=== PATIENT | female | born 1960 | race Caucasian/White ===

== ENCOUNTER 2020-06-14 23:39 | Inpatient (IN) | payer OTHER ==
[~2020-06-14] VITALS: Ht 149.9 cm; Wt 50.8 kg
[~2020-06-14 23:39] MED LIST: AZITHROMYCIN250 MG PO; IPRAT-ALBUT 0.5-3 ML NEB; LEVAQUIN750 MG PO; LOPRESSOR 25 MG25 MG PO; LORTAB 7.5-3251 EACH PO; NICOTINE PATCH1 EAC2 TOP; NITROSTAT0.4 MG SL; NORCO 5-325 TA1 EACH PO; PLAVIX 75 MG TA75 MG PO; VENTOLIN HFA 66.7 GM INH
[2020-06-14 23:54] LABS: HEMOGLOBIN 13.8 gm/dl (12.3-15.3); RED BLOOD COUNT 4.3 M/UL (4.00-5.10); WHITE BLOOD COUNT 11.4 K/UL (4.5-11.0)
[2020-06-15 00:50] LABS: BUN/CREATININE RATIO 13 (0-10)
[2020-06-15] MEDS ORDERED: ANORO ELLIPTA1 EACH INH (09:22)
[2020-06-15] MEDS ORDERED: PROTONIX 40 MG40 M1 PO (09:23)
[2020-06-15] MEDS ORDERED: ASPIRIN EC81 MG PO (10:08)
[2020-06-15] MEDS ORDERED: KLONOPIN1 MG PO (10:09)
[2020-06-15] MEDS ORDERED: ALLERGY RELIEF10 MG PO (10:09)
[2020-06-15] MEDS ORDERED: GABAPENTIN300 MG PO (16:50)
[2020-06-16 05:56] LABS: HEMOGLOBIN 11.5 gm/dl (12.3-15.3); RED BLOOD COUNT 3.59 M/UL (4.00-5.10); WHITE BLOOD COUNT 14.7 K/UL (4.5-11.0)
[2020-06-16 06:49] LABS: BUN/CREATININE RATIO 27 (0-10)
== END 2020-06-16 18:10 | disposition home or self-care (01) | DRG 189 ==
LOC: ER1 23:39 → CDU 06-15 04:28 → MED SURG 4 06-15 10:12
PROVIDERS: Family Medicine; ADMIT Internal Medicine
DX: J96.01 Acute respiratory failure with hypoxia (principal); R65.11 Systemic inflammatory response syndrome (SIRS) of non-infectious origin with acute organ dysfunction; J44.1 Chronic obstructive pulmonary disease with (acute) exacerbation; J96.02 Acute respiratory failure with hypercapnia; G89.29 Other chronic pain; M54.9 Dorsalgia, unspecified; I25.10 Atherosclerotic heart disease of native coronary artery without angina pectoris; Z20.822 Contact with and (suspected) exposure to COVID-19; F17.200 Nicotine dependence, unspecified, uncomplicated; Z90.710 Acquired absence of both cervix and uterus
CPT/HCPCS: 0240U; 36415; 36600; 70450; 71045; 80048; 80053; 80307; 81001; 82550; 82553; 82607; 82803; 83605; 83874; 83880; 84439; 84443; 84484; 85025; 85610; 87040; 93005; 94640; 94664; 94760; 96365; 96375; 99285; J0456; J0696; J1650; J2920; J2930; J7030; J7050; Q9967

== ENCOUNTER → 2021-06-16 | Outpatient (CLI) | payer OTHER ==
[~2021-06-16] MED LIST changes: +ALLERGY RELIEF10 MG PO; +ANORO ELLIPTA1 EACH INH; +ASPIRIN EC81 MG PO; +GABAPENTIN300 MG PO; +KLONOPIN1 MG PO; +PROTONIX 40 MG40 M1 PO
== END ==
LOC: RT 15:51
DX: R09.02 Hypoxemia (principal)
CPT/HCPCS: 36600; 82803

== ENCOUNTER → 2021-07-01 | Outpatient (CLI) | payer OTHER | LOC: MAMO 04-17 11:30 | DX: Z12.31 Encounter for screening mammogram for malignant neoplasm of breast (principal) | CPT/HCPCS: 77063; 77067 ==